=== PATIENT | male | born 1995 | race Caucasian/White ===

== ENCOUNTER 2021-03-26 06:39 | Emergency (ER) | payer OTHER | END 2021-03-26 07:37 | disposition home or self-care (01) | LOC: FER 06:39 | DX: S61.211A Laceration without foreign body of left index finger without damage to nail, initial encounter (principal); F17.200 Nicotine dependence, unspecified, uncomplicated; Z79.899 Other long term (current) drug therapy; W31.9XXA Contact with unspecified machinery, initial encounter; Y92.69 Other specified industrial and construction area as the place of occurrence of the external cause; Y99.0 Civilian activity done for income or pay | CPT/HCPCS: 99282 ==